=== PATIENT | female | born 1955 | race Caucasian/White ===

== ENCOUNTER 2024-01-15 16:36 | Emergency (ER) | payer OTHER, SELFPAY ==
[2024-01-15 16:48] VITALS: BP 149/73
--- NOTE | 2024-01-15 17:42 | ED.MUSCINJ ---
HPI-Injury
General
Chief Complaint: Fall
Source: patient
Exam Limitations: none
Time Seen by Provider: 01/15/24 16:56
Nursing documentation reviewed up to this point in time: agreed with
Travel History
Have you had any contact with someone who has COVID-19?: No
Do you have any symptoms of coronavirus? Fever > 100 degrees, chills, cough, shortness of breath, sore throat, loss of taste or smell, muscle aches, or headache?: No
History of Present Illness-Injury
Is this injury a work related problem?: No
Is pt an associate of [facility]?: No
Initial Injury comments:
Patient states she was attempting to remove cover of patio table, tripped over umbrella stand and fell backwards. Hit middle of her back on patio chairs. Also reports jamming left 3rd finger. She has a hx of osteoporosis and is concered about
fractures. Brought self to ED for eval. Incidentt occurred this afternoon.
Past History
Past History
ED Past Medical History: None
ED Past Surgical History: Gynecological
Social History
Tobacco: Non-smoker
Employment: Employed
Review of Systems
Review of Systems
Allergies reviewed?: Yes
All Other Systems: ROS reviewed and negative except as documented in HPI and ROS
Constitutional: Reports no symptoms
ABD/GI: Reports no symptoms
Musculoskeletal: Reports joint pain (pain to left 3rd finger) and back pain (pain to middle back)
Skin: Reports other (contusion to middle back.)
Neurological: Reports no symptoms
Psychiatric: Reports no symptoms
Musculoskeletal Injury Exam
Musculoskeletal Injury Exam
Left Third Finger:
Pain with Movement?: Moderate
Tender to palpation?: Moderate
Soft tissue swelling?: None
External deformity and angulation?: None
Joint effusion?: None
Contusion?: Moderate
Hematoma-local bleeding into tissue?: None
Strain- Sprain- Tear (Connective tissue injury)?: Moderate
Crepitus with movement?: No
Joint instability?: No
Range of motion: Full
Capillary Refill: normal
Normal distal neurovascular exam?: Yes
Middle Back:
Pain with Movement?: Mild
Tender to palpation?: Mild
Soft tissue swelling?: None
Contusion?: Moderate
Hematoma-local bleeding into tissue?: None
Strain- Sprain- Tear (Connective tissue injury)?: None
Crepitus with movement?: No
Joint instability?: No
Malalignment/deformity?: No
Distal skin color and temperature: normal-warm & good color
Capillary Refill: normal
Normal distal neurovascular exam?: Yes
Phy Exam
General Physical Exam
General Presentation: well appearing and no apparent distress
General age: appears stated age
General Skin: warm and dry
General Habitus: normal
Musculoskeletal Exam
Musculoskeletal Exam: full ROM and neuro vasc intact
Skin Exam
Skin Exam: normal color, warm/dry and no rash
Psychiatric Exam
Psychiatric Exam: normal mood/affect
Injury Course
Orders/Labs/Results
Orders:
Orders
01/15/24 17:20
Finger(s)/Thumb 2 View Lt [CR Finger(s)/thumb Min 2 Vw Lt] Urgent
Comment:
Reason For Exam: pain left 3rd finger
Thoracic Spine 3 Views CR [CR Thoracic Spine 3 Views] Urgent
Comment:
Reason For Exam: fall
01/15/24 18:26
Aluminium Finger Splint Left ONCE
*Radiology
Radiology exam reviewed: preliminary read by ED provider (fx base of proximal phalanx finger #3)
*Critical Care Note
Total Time (30-74mins, 75-104mins- exclusive of procedures): Not Applicable
ED Attending Note
-
Portions of this chart may have been created with voice recognition software.� Occasional wrong word or��sound alike� substitutions may have occurred due to the inherent limitations of voice recognition software.
Discharge Plan
Departure
Patient Disposition: Home (Routine Discharge)
Date of Disposition: 01/15/24
Time of Disposition: 18:26
Patient with high blood pressure during this ER visit?: No
Condition: Good
Covid-19: Not Applicable
Discharge Problem:
Finger fracture, Back contusion
Instructions: Contusion (DC), Preventing falls in adults, Finger Fracture (DC), Using Cold for Pain, Ibuprofen
Prescriptions:
No Action
No Current Medications
0
Referrals:
Deborah Rhodes MD [Family Provider] - Follow up in 2-3 days
Stand Alone Forms: Return to Work
Interventions
Interventions:
*Risk Screen - Suicide Last Done: 01/15/24 16:48
*General Assessment Last Done: 01/15/24 16:48
*Neglect/Abuse Screening Last Done: 01/15/24 16:48
*ED COVID-19 Vaccine History Last Done: 01/15/24 16:48
ED-Musculoskeletal Assessment Last Done: 01/15/24 16:59
ED- Neurological Assessment Last Done: 01/15/24 16:59
ED-Skin Assessment Last Done: 01/15/24 16:59
Discharge Date and Time
Print Language: IRISH
== END 2024-01-15 18:56 | disposition home or self-care (01) ==
LOC: EMR 16:36
PROVIDERS: EMERGENCY PHYSICIAN Emergency Medicine; FAMILY PHYSICIAN Family Medicine
DX: S20.229A Contusion of unspecified back wall of thorax, initial encounter (principal); S62.613A Displaced fracture of proximal phalanx of left middle finger, initial encounter for closed fracture; W18.09XA Striking against other object with subsequent fall, initial encounter
CPT/HCPCS: 99283; 29130; 72072; 73140